=== PATIENT | male | born 1975 | race Two or more races ===

== ENCOUNTER 2017-02-10 16:04 | Emergency (ER) | payer MEDICAID ==
[~2017-02-10] VITALS: Ht 175.3 cm; Wt 79.4 kg
[2017-02-10] MEDS ORDERED: RISPERDAL2 MG ORAL (16:34)
[2017-02-10] MEDS ORDERED: METFORMIN HCL500 M1 ORAL (16:34)
[2017-02-10 17:43] LABS: BASOPHILS % (AUTO) 1.3 % (0.0-2.0); EOSINOPHILS % (AUTO) 3.3 % (0.0-3.0); LYMPHOCYTES % (AUTO) 44.9 % (20.0-45.0); MEAN CORPUSCULAR HGB CONC 35.3 G/DL (32.0-36.0); MEAN CORPUSCULAR VOLUME 91 FL (80-99); MEAN PLATELET VOLUME 8.2 FL (6.5-10.1); MONOCYTES % (AUTO) 12.5 % (1.0-10.0); NEUTROPHILS % (AUTO) 38.1 % (45.0-75.0); PLATELET COUNT 260 K/UL (150-450); RED BLOOD COUNT 3.86 M/UL (4.70-6.10); RED CELL DISTRIBUTION WIDTH 10.7 % (11.6-14.8); WHITE BLOOD COUNT 5.4 K/UL (4.8-10.8)
--- NOTE | 2017-02-10 17:43 | Emergency Room Report ---
History of Present Illness General Chief Complaint: Behavioral Complaint Source: Patient (GUILLERMO HOPE) Present Illness HPI The patient is a 41-year-old male presenting for possible SI. He states he has a Hx of schizophrenia and is taking risperdal. He seeks psychiatric care at [facility]. He states that he is hearing voices to hurt himself but is unable to provide detailed information. He states that he is not able to see psychiatrist in the last 6 months. He denies any other symptoms (GUILLERMO HOPE) Allergies: Coded Allergies: No Known Allergies (Unverified , 02/11/17) Patient History Past Medical History: see triage record Pertinent Family History: none Reviewed Nursing Documentation: PMH: Agreed, PSxH: Agreed (GUILLERMO HOPE) Nursing Documentation-PMH History Of Psychiatric Problem: Yes - Schizzophrenic, Anxiety, Depression (GUILLERMO HOPE) Review of Systems All Other Systems: negative except mentioned in HPI (GUILLERMO HOPE) Physical Exam Vital Signs Date Time Temp Pulse Resp B/P (MAP) Pulse Ox O2 Delivery O2 Flow Rate FiO2 02/10/17 16:07 97.9 90 16 134/78 98 Room Air Sp02 EP Interpretation: reviewed, normal General Appearance: no apparent distress, alert, GCS 15, non-toxic Head: normocephalic, atraumatic Eyes: bilateral eye normal inspection, bilateral eye PERRL ENT: hearing grossly normal, normal pharynx, no angioedema, normal voice Neck: full range of motion, supple/symm/no masses Respiratory: chest non-tender, lungs clear, normal breath sounds, speaking full sentences Gastrointestinal: normal bowel sounds, non tender, soft, non-distended, no guarding, no rebound Musculoskeletal: back normal, gait/station normal, normal range of motion, non- tender Neurologic: alert, oriented x3, responsive, motor strength/tone normal, sensory intact, speech normal Psychiatric: memory normal Suicide Risk Assessment: Suicidal Ideation: Yes Had intent to initiate attempt: No Pt's plan for suicide attempt: No Has means to complete attempt: Yes Skin: normal color, no rash, warm/dry, well hydrated (GUILLERMO HOPE) Medical Decision Making PA Attestation Dr. Slater is my supervising physician. Patient management was discussed with my supervising physician (GUILLERMO HOPE) Diagnostic Impression: Primary Impression: Behavioral disorder ER Course The patient is a 41-year-old male presenting for possible SI. Differential diagnoses considered but not limited to suicidal ideation, homicidal ideation, depression, psychosis, among others PE: vitals stable. A&Ox3 Resting on gurney. No distress RRR Lungs CTA bilat Abd soft and non tender Urine drug screen positive for amphetamines. Otherwise unremarkable Dr. Martinez was consulted and will be able to evaluate the patient on 02/11. The patient will be signed out to Dr. Barillas. He is in stable condition and is resting comfortably on gurney Laboratory Tests Test 02/10/17 16:30 02/10/17 17:20 Urine Opiates Screen Negative (NEGATIVE) Urine Barbiturates Screen Negative (NEGATIVE) Phencyclidine (PCP) Screen Negative (NEGATIVE) Urine Amphetamines Screen Positive (NEGATIVE) H Urine Benzodiazepines Screen Negative (NEGATIVE) Urine Cocaine Screen Negative (NEGATIVE) Urine Marijuana (THC) Screen Negative (NEGATIVE) White Blood Count 5.4 K/UL (4.8-10.8) Red Blood Count 3.86 M/UL (4.70-6.10) L Hemoglobin 12.3 G/DL (14.2-18.0) L Hematocrit 35.0 % (42.0-52.0) L Mean Corpuscular Volume 91 FL (80-99) Mean Corpuscular Hemoglobin 32.0 PG (27.0-31.0) H Mean Corpuscular Hemoglobin Concent 35.3 G/DL (32.0-36.0) Red Cell Distribution Width 10.7 % (11.6-14.8) L Platelet Count 260 K/UL (150-450) Mean Platelet Volume 8.2 FL (6.5-10.1) Neutrophils (%) (Auto) 38.1 % (45.0-75.0) L Lymphocytes (%) (Auto) 44.9 % (20.0-45.0) Monocytes (%) (Auto) 12.5 % (1.0-10.0) H Eosinophils (%) (Auto) 3.3 % (0.0-3.0) H Basophils (%) (Auto) 1.3 % (0.0-2.0) Sodium Level 138 MMOL/L (136-145) Potassium Level 3.8 MMOL/L (3.5-5.1) Chloride Level 103 MMOL/L (98-107) Carbon Dioxide Level 27 MMOL/L (21-32) Anion Gap 8 (5-15) Blood Urea Nitrogen 11 mg/dL (7-18) Creatinine 0.8 MG/DL (0.55-1.30) Estimate Glomerular Filtration Rate > 60 mL/min (>60) Glucose Level 123 MG/DL (74-106) H Calcium Level 8.6 MG/DL (8.5-10.1) Total Bilirubin 0.8 MG/DL (0.2-1.0) Aspartate Amino Transferase (AST) 22 U/L (15-37) Alanine Aminotransferase (ALT) 24 U/L (12-78) Alkaline Phosphatase 55 U/L (46-116) Total Protein 7.0 G/DL (6.4-8.2) Albumin 3.7 G/DL (3.4-5.0) Globulin 3.3 g/dL Albumin/Globulin Ratio 1.1 (1.0-2.7) Salicylates Level < 3 ug/mL (2.8-20) Acetaminophen Level < 10.0 MCG/ML (10-30) L Serum Alcohol < 3 mg/dL Lab Results Impression Urine drug screen positive for amphetamines. Otherwise unremarkable ([facility]ERMO HOPE P.A[facility] ER Course 41-year-old male with schizophrenia Has been sleeping comfortably Upon walking to exam room patient stating "Yes I am hearing voices and I am suicidal" denies plan. States he takes Risperdal 2 mg twice a day last time he took it was yesterday morning. Pending psych eval Eval'ed by psych. Patient is stable for discharge. He has sufficient amounts of his risperdal. Safe for DC to home. (Kumar Hollis M.D.) Last Vital Signs Date Time Temp Pulse Resp B/P (MAP) Pulse Ox O2 Delivery O2 Flow Rate FiO2 02/10/17 16:07 97.9 90 16 134/78 98 Room Air Status: improved ([facility]LLERMO HOPE P.A.) Disposition: HOME, SELF-CARE Condition: Improved Signed Out To: Dr. Barillas (GUILLERMO HOPE) Patient Instructions: Schizophrenia Additional Instructions: Please followup with your psychiatrist in one week GUILLERMO HOPE Feb 10, 2017 17:43 Kumar Hollis M.D. Feb 11, 2017 08:14
[2017-02-10 17:59] LABS: ALANINE AMINOTRANSFERASE 24 U/L (12-78); ALBUMIN/GLOBULIN RATIO 1.1 (1.0-2.7); ALCOHOL < 3 mg/dL; ANION GAP 8 (5-15); ASPARTATE AMINO TRANSFERASE 22 U/L (15-37); CALCIUM 8.6 MG/DL (8.5-10.1); CARBON DIOXIDE 27 MMOL/L (21-32); CHLORIDE 103 MMOL/L (98-107); CREATININE 0.8 MG/DL (0.55-1.30); GLOMERULAR FILTRATION RATE > 60 mL/min (>60); POTASSIUM 3.8 MMOL/L (3.5-5.1); SODIUM 138 MMOL/L (136-145)
[2017-02-10 18:00] LABS: ACETAMINOPHEN < 10.0 MCG/ML (10-30)
[2017-02-10 19:15] VITALS: BP 134/78
[2017-02-10 21:15] VITALS: BP 126/69
[2017-02-10 23:15] VITALS: BP 133/70
[2017-02-11 01:15] VITALS: BP 140/70
[2017-02-11 03:15] VITALS: BP 136/75
[2017-02-11 05:15] VITALS: BP 127/85
[2017-02-11 07:10] VITALS: BP 124/78
[2017-02-11 10:39] VITALS: BP 117/74
[2017-02-11 10:45] VITALS: BP 117/74
--- NOTE | 2017-02-16 08:15 | Consultation ---
DATE OF CONSULTATION: 02/11/2017 HISTORY OF PRESENT ILLNESS: The patient was evaluated in the ER, 41-year-old male, who presented with the chief complaint of people after him to kill him, then he stated that he is suicidal, he wants to be admitted to the hospital. His system was positive for crystal meth. However, he denies using crystal meth and admitted when I told him that his system was positive for crystal meth. He was observed eating, sleeping well, no agitation, no behavior issues. He insisted that he wants to go to the psychiatric unit. Then, he stated that if we find him a board and care he would be probably doing fine. He has not been seeing his psychiatrist. He has been hospitalized in [place] several years ago. He wanted to be admitted to and stated that he also is hearing voices. He was given risperidone yesterday. He is noncompliant with medication using drugs. He has future oriented thought process stated he has finished his ER and he is looking into getting disability. PAST PSYCHIATRIC HISTORY: He has a history of schizophrenia. He has no suicide attempt. No history of psychiatric hospitalization. PAST MEDICAL HISTORY: None. ALLERGIES: No known drug allergies. SUBSTANCE ABUSE HISTORY: He is positive for crystal meth. He stated he has been using other drugs recreationally. MENTAL STATUS EXAMINATION: Alert and oriented times self, place, and situation he is in. Mood is neutral. Affect is full range. Congruent with mood. Thought process is linear. Thought content, he stated he is suicidal and he is having auditory hallucination and delusions. Insight and judgment is fair. ASSESSMENT: AXIS I Crystal meth abuse. AXIS II Deferred. AXIS III As above. AXIS IV Low. AXIS V Global assessment of functioning is 70. PLAN: 1. He does not meet the criteria for 5150 or inpatient level of care. He is refusing to risperidone prescription. 2. The patient is not an imminent danger to self or others at this time. Coty Martinez M.D. DR: LETICIA JOB#: [id number] CC:
== END 2017-02-11 10:49 | disposition home or self-care (01) ==
LOC: EMR 17:51
DX: F91.9 Conduct disorder, unspecified (principal); F20.9 Schizophrenia, unspecified; F41.9 Anxiety disorder, unspecified; F32.9 Major depressive disorder, single episode, unspecified
CPT/HCPCS: 36415; 80053; 80300; 80329; 85025; 99284